=== PATIENT | male | born 1950 | race Two or more races ===

== ENCOUNTER 2024-04-07 18:42 | Emergency (ER) | payer MEDICARE, MEDICAID ==
[~2024-04-07] VITALS: Ht 170.2 cm; Wt 82.9 kg
[2024-04-07 18:58] VITALS: BP 143/95; PULSE 97; RESP 18; O2SAT 94
== END 2024-04-07 23:21 | disposition left against medical advice (07) ==
LOC: ER 18:42
DX: M25.512 Pain in left shoulder (principal); M25.511 Pain in right shoulder; Z53.21 Procedure and treatment not carried out due to patient leaving prior to being seen by health care provider